=== PATIENT | male | born 1930 | race Caucasian/White ===

== ENCOUNTER 2020-11-17 15:44 | Inpatient (IN) ==
[2020-11-17 17:47] LABS: POC Blood Urea Nitrogen 17 mg/dL (6-20); POC CO2 22 mmol/L (22-30); POC Calcium, Ionized 1.13 mmEq/L (1.16-1.32); POC Chloride 102 mEq/L (96-108); POC Creatinine 0.7 mg/dL (0.6-1.2); POC Glucose, Random 132 mg/dL (70-105); POC Hematocrit 38 % (41-55); POC Potassium 3.8 mEql/L (3.3-5.1); POC Sodium 137 mEq/L (133-145)
--- NOTE | 2020-11-17 18:10 | Emergency Department Note ---
Weakness HPI General Chief complaint: Weakness Stated complaint: pain, weakness Time Seen by Provider: 11/17/20 17:14 Source: EMS Mode of arrival: EMS Limitations: other History of Present Illness HPI Narrative: This is an 89-year-old male patient who lives at [facility] who was sent in by his caregivers for acute ambulatory dysfunction and right hip pain. No previous falls. No known traumatic injuries. The patient is normally able to transfer himself from his bed to his chair and from his chair to the [facility], but was unable to stand and transfer this morning. Patient has dementia and is severely hard of hearing and is unable to give me a review of systems. His son is at the bedside to fill in some of the gaps of his history. Patient has a Dilaudid pain pump in place for lumbar back pain that is managed by Opal Rojas with last refill in September. Per chart review the patient has a history of severe aortic stenosis as well as COPD. Related Data Home Medications Medication Instructions Recorded Confirmed O2 2 l .ROUTE QDAY 05/04/19 11/18/20 carboxymethylcellulose sodium 2 drp OPHTHALMIC (EYE) QID 05/04/19 11/18/20 [Artificial Tears (cmc)] ketoconazole 2 % shampoo 1 applic TOPICAL 3XW 05/04/19 11/18/20 ketoconazole 2 % topical cream 1 applic TOPICAL 3XW g 05/04/19 11/18/20 sennosides 8.6 mg tablet 17.2 mg PO QPM tab 05/04/19 11/18/20 tiotropium bromide 18 mcg capsule 1 cap INHALATION QAM puff 05/04/19 11/18/20 with inhalation device vit C-vit [id number] 1 cap PO QDAY 05/04/19 11/18/20 [Ocuvite] 4 Wheel Walker with Seat NOTAPPLIC 05/17/19 10/02/20 acetaminophen 500 mg tablet 500 mg PO Q6H PRN tab 05/17/19 11/18/20 benzocaine 10 % mucosal gel 1 applic MUCOUS MEM .COMPLEX 05/17/19 11/18/20 cyanocobalamin (vitamin B-12) 1,000 mcg PO QDAY 05/17/19 11/18/20 1,000 mcg capsule ferrous sulfate 325 mg (65 mg 325 mg PO BID tab 05/17/19 11/18/20 iron) tablet memantine 5 mg tablet 10 mg PO BID tab 05/17/19 11/18/20 promethazine 12.5 mg tablet 12.5 mg PO Q8H PRN tab 05/17/19 11/18/20 tizanidine 4 mg tablet 4 mg PO TID 05/17/19 11/18/20 Previous Rx's Medication Instructions Recorded furosemide 20 mg tablet 20 mg PO .COMPLEX #90 tab 05/04/19 zinc oxide 13 % topical cream 1 applic TOPICAL QPM #113 g 05/15/19 erythromycin 5 mg/gram (0.5 %) eye 0.5 inch OPHTHALMIC BID #1 g 06/28/19 ointment cholecalciferol (vitamin D3) 25 25 mcg PO QDAY #90 tab 08/02/19 mcg (1,000 unit) chewable tablet pantoprazole 40 mg tablet,delayed 40 mg PO QAM #90 tab 08/02/19 release potassium chloride 10 mEq 10 meq PO BID #180 tab 08/02/19 tablet,extended release(part/cryst) nystatin 100,000 unit/gram topical See Rx Instructions .ROUTE 08/21/19 cream .COMPLEX #30 unknown measurement unit code: gram atorvastatin 20 mg tablet 20 mg PO QDAY #90 tab 09/11/19 citalopram 40 mg tablet 40 mg PO QAM #90 tab 09/11/19 divalproex 250 mg tablet,extended 250 mg PO QNOON #90 tab 09/11/19 release 24 hr divalproex 500 mg tablet,extended 500 mg PO QHS #90 tab 09/11/19 release 24 hr finasteride 5 mg tablet 5 mg PO QPM #90 tab 09/11/19 gabapentin 300 mg capsule 300 mg PO TID #270 cap 09/11/19 levothyroxine 25 mcg capsule 25 mcg PO QAM #90 cap 09/11/19 megestrol 400 mg/10 mL (40 mg/mL) 200 mg PO QAM #480 ml 09/11/19 oral suspension polyethylene glycol 3350 17 17 g PO QDAY #850 g 09/11/19 gram/dose oral powder tamsulosin 0.4 mg capsule 0.4 mg PO QHS #90 cap 09/11/19 lactulose 10 gram/15 mL oral See Rx Instructions .ROUTE 09/25/19 solution .COMPLEX #473 ml diclofenac sodium 1 % topical gel See Rx Instructions .ROUTE 09/23/20 .COMPLEX #100 g Allergies Allergy/AdvReac Type Severity Reaction Status Date / Time No Known Drug Allergies Allergy Verified 11/17/20 15:49 Review of Systems ROS ROS Narrative: Narrative: All systems ED: reviewed and negative except as stated. [facility] Narrative Patient History Narrative: Narrative: Medical/Surgical/Family History All Active Problems Intertrochanteric fracture of right hip (Acute) Abdominal pain (Acute) Shoulder pain, left (Acute) Facial swelling (Acute) Facet arthropathy, lumbar (Chronic) Radiculopathy of cervical region (Chronic) Stenosis, cervical spine (Chronic) Degenerative disc disease (Chronic) Radiculopathy of lumbar region (Chronic) Breakdown (mechanical) of other nervous system device, implant or graft, initial encounter (Chronic) Severe aortic regurgitation (Chronic) First degree atrioventricular block (Chronic) Basal cell carcinoma, face (Chronic) Fatigue (Chronic) Anxiety (Chronic) VIVIANE (obstructive sleep apnea) (Chronic) Other abnormalities of gait and mobility (Chronic) Tremor (Chronic) Chronic pain (Chronic) Dementia (Chronic) Diverticulosis of sigmoid colon (Chronic) GI bleed (Chronic) Headache (Chronic) Chronic hypokalemia (Chronic) Low back pain (Chronic) Arthritis (Chronic) Neuropathy (Chronic) Cardiac murmur (Chronic) B-complex deficiency (Chronic) Bilateral lower extremity edema (Chronic) Physical exam (Chronic) Epidermal cyst (Chronic) Lower extremity edema (Chronic) Dizziness (Chronic) Peripheral neuropathy (Chronic) Stomatitis and mucositis, unspecified (Chronic) Anemia, iron deficiency (Chronic) Vitamin B12 deficiency (Chronic) Vitamin D deficiency (Chronic) Systolic murmur (Chronic) Hypoxia (Chronic) SOB (shortness of breath) (Chronic) Abdominal pain, LLQ (left lower quadrant) (Chronic) Actinic keratosis (Chronic) Back pain (Chronic) 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) Chronic obstructive pulmonary disease (Chronic) Constipation (Chronic) Degenerative joint disease (Chronic) Depression (Chronic) Dyspnea (Chronic) Gastroesophageal reflux (Chronic) Gout (Chronic) Hypercholesterolemia (Chronic) Hyperlipidemia (Chronic) Hypertension, essential (Chronic) Incontinence of urine (Chronic) Urge incontinence (Chronic ~06/08/12) Insomnia, unspecified (Chronic) Leukopenia (Chronic) Lung nodule (Chronic) Macular degeneration (Chronic) Nocturia (Chronic 06/08/12) Obstructive sleep apnea (adult) (pediatric) (Chronic) Peptic ulcer disease (Chronic) Plantar wart (Chronic) BPH NOS w ur obs/LUTS (Chronic) Skin disorder (Chronic) Thrush, oral (Chronic) Urinary retention (Chronic 06/14/12) Urinary urgency (Chronic) Visual loss (Chronic) Medical History Abdominal pain, LLQ (left lower quadrant) Actinic keratosis Anemia, iron deficiency Anxiety Arthritis B-complex deficiency Back pain With radiation,unspecified Basal cell carcinoma, face Bilateral lower extremity edema BPH NOS w ur obs/LUTS BPH w urinary obs/LUTS (06/08/12) Breakdown (mechanical) of other nervous system device, implant or graft, initial encounter Cardiac murmur Chronic hypokalemia Chronic obstructive pulmonary disease Chronic pain with intrathecal pump in place Constipation Degenerative disc disease Degenerative joint disease Dementia Depression Diverticulosis of sigmoid colon Dizziness Dyspnea Epidermal cyst Facet arthropathy, lumbar Fatigue First degree atrioventricular block Gastroesophageal reflux GI bleed Gout Headache Hypercholesterolemia Hyperlipidemia Hypertension, essential Hypoxia Incontinence of urine Insomnia, unspecified Leukopenia Low back pain Lung nodule Macular degeneration Neuropathy Nocturia (06/08/12) Obstructive sleep apnea (adult) (pediatric) VIVIANE (obstructive sleep apnea) Other abnormalities of gait and mobility Unsteady when walking Peptic ulcer disease Peripheral neuropathy Physical exam Plantar wart right and left Radiculopathy of cervical region Radiculopathy of lumbar region Severe aortic regurgitation Skin disorder SOB (shortness of breath) Stenosis, cervical spine Stomatitis and mucositis, unspecified Systolic murmur Thrush, oral Tremor Urge incontinence (~06/08/12) Urinary retention (06/14/12) Urinary urgency Visual loss Vitamin B12 deficiency Vitamin D deficiency Surgical History History of colonoscopy History of esophagogastroduodenoscopy (EGD) 1998, 2007 History of left inguinal hernia repair (~2013) History of shoulder surgery right S/P epidural steroid injection 11/21 TF VIMAL #2 Left L4-5, L5-S1 w/o sed 11/09/201610/21 TF VIMAL #1 Lt L4-5 w/o sed 10/28/2016 S/P insertion of intrathecal pump [employer] Replacement [facility]- 12/08/2017 Replacement pump [facility]- 07/02/2011 Implant of Pump 2004 Family History Brother Esophageal cancer Father Liver cancer Daughter Insomnia Social History Smoking Status: Never smoker Alcohol Intake Frequency: holiday/special occasion only Substance Use: does not use Exam Narrative Narrative: General: NAD. Hard of hearing. Nontoxic appearing. Alert and oriented to self. Following commands. Pleasant and conversant. HEENT: PERRLA, EOMI, normocephalic. Dry mucous membranes. Normal facies. Chest: Symmetric, no pain to palpation Respiratory: Lungs clear to auscultation bilaterally. No respiratory distress. Unlabored breathing. Heart: Regular rate and rhythm, no murmurs/clicks/rubs. Abdomen: Non-tender, Non distended, normal bowel tones. No organomegaly. Extremities: Warm and well perfused. No edema. DP 2+ bilaterally. No venous stasis. No right lower extremity deformity or derangement. Patient has normal plantar and dorsiflexion. Increased pain with knee flexion. There is pain to palpation along the greater trochanter. No ecchymosis. Small abrasion to the anterior right parker. Neuro: No focal deficits. Cranial nerves II-XII normal. Skin: Warm dry, no rashes or lesions, no cyanosis. Psych: Normal mood and affect Heme/Lymph: No abnormal bruising General Limitations: other Course Vital Signs Vital signs: Vital Signs Temperature 98.9 F 11/17/20 15:44 Pulse Rate 94 H 11/17/20 15:44 Respiratory Rate 16 11/17/20 15:44 Blood Pressure 120/81 11/17/20 15:44 Pulse Oximetry (%) 100 11/17/20 15:44 Temperature 97.2 F 11/18/20 18:39 Pulse Rate 81 11/18/20 18:40 Respiratory Rate 12 11/18/20 18:40 Blood Pressure 125/82 11/18/20 18:40 Pulse Oximetry (%) 93 11/18/20 18:40 [facility] Narrative Medical decision making narrative: Right intertrochanteric hip fracture Patient will need admission for pain management and ongoing discussion of possible fixation of the right hip fracture. I spoke with Dr. Vieira who agrees for admission but would like the hospitalist to manage the patient's multiple chronic medical issues. I spoken with the son, Zurdo, who is the DPOA and he would like to discuss hospice and comfort care versus surgical fixation with his family prior to making a decision for surgery. Patient is initiated on IV analgesics and I have signed him out to the hospitalist for admission. Lab Data Result diagrams: 11/18/20 06:50 11/18/20 06:50 Labs: Lab Results 11/17/20 11/17/20 11/17/20 Range/Units 16:30 17:35 17:35 WBC 11.2 H (4.5-11.0) K/mcL RBC 4.04 L (4.63-6.08) M/mcL Hgb 13.2 L (13.7-17.5) g/dL Hct 38.1 L (40.1-51.0) % POC Hct 38 L (41-55) % MCV 94.3 (80.0-100.0) fL MCH 32.7 (26.0-34.0) pg MCHC 34.6 (31.0-36.0) g/dL RDW 12.9 (11.5-14.5) % Plt Count 117 L (140-440) K/mcL MPV 11.1 H (7.4-10.4) fL Neut % (Auto) 82.1 H (38.0-78.0) % Lymph % (Auto) 9.6 L (15.5-49.0) % Banner % (Auto) 7.9 (1.0-12.0) % Eos % (Auto) 0 (0.0-7.0) % Baso % (Auto) 0.4 (0.0-2.0) % Lymph # (Auto) 1.08 L (1.50-4.80) K/mcL Banner # (Auto) 0.89 (0.10-0.90) K/mcL Eos # (Auto) 0 (0.00-0.70) K/mcL Baso # (Auto) 0.04 (0.00-0.30) K/mcL Absolute Neutrophils 9.20 H (1.80-8.00) K/mcL POC Sodium 137 (133-145) mEq/L Sodium (133-145) mmol/L POC Potassium 3.8 (3.3-5.1) mEql/L Potassium (3.3-5.1) mmol/L POC Chloride 102 (96-108) mEq/L Chloride (96-108) mmol/L Carbon Dioxide (22-30) mmol/L POC Total CO2 22 (22-30) mmol/L Anion Gap (8.0-16.0) POC BUN 17 (6-20) mg/dL BUN (8-23) mg/dL Creatinine (0.7-1.2) mg/dL POC Creatinine 0.7 (0.6-1.2) mg/dL GFR Calculation Glucose (70-105) mg/dL POC Glucose 132 H (70-105) mg/dL Calcium (8.6-10.4) mg/dL POC WB Ioniz Calcium 1.13 L (1.16-1.32) mmEq/L Total Bilirubin (0.1-1.0) mg/dL AST (<40) U/L ALT (<40) U/L Alkaline Phosphatase (39-117) U/L Total Protein (5.9-8.4) gm/dL Albumin (3.2-5.2) gm/dL Globulin (2.2-3.7) gm/dL Albumin/Globulin Ratio (1.0-2.3) Urine Color Yellow Urine Appearance Hazy A (Clear) Urine pH 5.0 (5.0-9.0) Ur Specific [place] 1.031 (1.000-1.035) Urine Protein 30 A (Negative) mg/dL Urine Glucose (UA) Negative (Negative) mg/dL Urine Ketones 5 A (Negative) mg/dL Urine Occult Blood Negative (Negative) mg/dL Urine Nitrate Negative (Negative) Urine Bilirubin Negative (Negative) mg/dL Urine Urobilinogen 4.0 A mg/dL Ur Leukocyte Esterase Negative (Negative) /ug Urine RBC 9 H (0-3) /hpf Urine WBC 2 (0-4) /hpf Ur Squamous Epith Cells 1 (0-4) /hpf Urine Bacteria None (0) /hpf Hyaline Casts 7 H (0-2) /lph Urine Mucus Many A (None) /hpf Ur Culture Indicated? No 09/13/21 Range/Units 19:30 WBC (4.5-11.0) K/mcL RBC (4.63-6.08) M/mcL Hgb (13.7-17.5) g/dL Hct (40.1-51.0) % POC Hct (41-55) % MCV (80.0-100.0) fL MCH (26.0-34.0) pg MCHC (31.0-36.0) g/dL RDW (11.5-14.5) % Plt Count (140-440) K/mcL MPV (7.4-10.4) fL Neut % (Auto) (38.0-78.0) % Lymph % (Auto) (15.5-49.0) % Banner % (Auto) (1.0-12.0) % Eos % (Auto) (0.0-7.0) % Baso % (Auto) (0.0-2.0) % Lymph # (Auto) (1.50-4.80) K/mcL Banner # (Auto) (0.10-0.90) K/mcL Eos # (Auto) (0.00-0.70) K/mcL Baso # (Auto) (0.00-0.30) K/mcL Absolute Neutrophils (1.80-8.00) K/mcL POC Sodium (133-145) mEq/L Sodium 134 (133-145) mmol/L POC Potassium (3.3-5.1) mEql/L Potassium 3.7 (3.3-5.1) mmol/L POC Chloride (96-108) mEq/L Chloride 100 (96-108) mmol/L Carbon Dioxide 22 (22-30) mmol/L POC Total CO2 (22-30) mmol/L Anion Gap 12.0 (8.0-16.0) POC BUN (6-20) mg/dL BUN 16 (8-23) mg/dL Creatinine 0.6 L (0.7-1.2) mg/dL POC Creatinine (0.6-1.2) mg/dL GFR Calculation 89 Glucose 118 H (70-105) mg/dL POC Glucose (70-105) mg/dL Calcium 8.7 (8.6-10.4) mg/dL POC WB Ioniz Calcium (1.16-1.32) mmEq/L Total Bilirubin 0.8 (0.1-1.0) mg/dL AST 24 (<40) U/L ALT 16 (<40) U/L Alkaline Phosphatase 67 (39-117) U/L Total Protein 6.0 (5.9-8.4) gm/dL Albumin 3.3 (3.2-5.2) gm/dL Globulin 2.7 (2.2-3.7) gm/dL Albumin/Globulin Ratio 1.2 (1.0-2.3) Urine Color Urine Appearance (Clear) Urine pH (5.0-9.0) Ur Specific [place] (1.000-1.035) Urine Protein (Negative) mg/dL Urine Glucose (UA) (Negative) mg/dL Urine Ketones (Negative) mg/dL Urine Occult Blood (Negative) mg/dL Urine Nitrate (Negative) Urine Bilirubin (Negative) mg/dL Urine Urobilinogen mg/dL Ur Leukocyte Esterase (Negative) /ug Urine RBC (0-3) /hpf Urine WBC (0-4) /hpf Ur Squamous Epith Cells (0-4) /hpf Urine Bacteria (0) /hpf Hyaline Casts (0-2) /lph Urine Mucus (None) /hpf Ur Culture Indicated? ED POC Tests ED POC Tests: JIMENA - SARS Antigen Negative Discharge Plan Patient/Caregiver Discharge Instructions Pt seen by [facility] OPERATOR/PA only: Yes Clinical Impression: Intertrochanteric fracture of right hip Patient Disposition: Xfer As Inpt ([facility]) Discharge Date/Time: 11/17/20 20:55 Discharge Location: [facility]
[2020-11-17 18:42] LABS: Basophils # (Auto) 0.04 K/mcL (0.00-0.30); Basophils % (Auto) 0.4 % (0.0-2.0); Eosinophils # (Auto) 0 K/mcL (0.00-0.70); Eosinophils % (Auto) 0 % (0.0-7.0); Hematocrit 38.1 % (40.1-51.0); Hemoglobin 13.2 g/dL (13.7-17.5); Lymphocytes # (Auto) 1.08 K/mcL (1.50-4.80); Lymphocytes % (Auto) 9.6 % (15.5-49.0); Mean Cell Volume 94.3 fL (80.0-100.0); Mean Corpuscular HGB Conc 34.6 g/dL (31.0-36.0); Mean Platelet Volume 11.1 fL (7.4-10.4); Monocytes # (Auto) 0.89 K/mcL (0.10-0.90); Monocytes % (Auto) 7.9 % (1.0-12.0); Neutrophils % (Auto) 82.1 % (38.0-78.0); Platelet Count 117 K/mcL (140-440); RBC 4.04 M/mcL (4.63-6.08); Red Cell Distribution Width 12.9 % (11.5-14.5); WBC 11.2 K/mcL (4.5-11.0)
--- NOTE | 2020-11-17 18:50 | XRay Report ---
HISTORY: Fell and fractured right hip FINDINGS: There is an acute fracture of the proximal right femur. It involves the greater trochanter and extends down to the junction of the femoral neck and the lesser trochanter. There is moderate varus angulation. The femoral head remains normally aligned with the acetabulum. There is underlying osteoporosis. Left hip is normal. Patient has a spinal stimulator powerpack which overlies the right iliac crest. IMPRESSION: Fractured right hip Interpreted and Authenticated by: Trino Levy 11/17/20
[2020-11-17 18:55] LABS: Appearance,Urine HAZY (Clear); Bilirubin,Urine Negative (Negative); Color,Urine Yellow; Culture Indicated,Urine No; Glucose,Urine (UA) Negative (Negative); Ketones,Urine 5 mg/dL (Negative); Leukocyte Esterase,Urine Negative /ug (Negative); Mucus,Urine MANY /hpf; Nitrate,Urine Negative (Negative); Protein,Urine 30 mg/dL (Negative); Specific Gravity,Urine 1.031 (1.000-1.035); Urine Blood Negative (Negative); Urine Hyaline Cast 7 /lph (0-2); Urine RBC 9 /hpf (0-3); Urine Squamous Epithelial Cell 1 /hpf (0-4); Urine WBC 2 /hpf (0-4)
--- NOTE | 2020-11-17 18:55 | XRay Report ---
HISTORY: Altered level of consciousness with pain and weakness FINDINGS: Heart is mild to moderately enlarged. There is a vague infiltrate centrally in the left lung with greatest involvement above the left diaphragm. Mildly prominent increased interstitial lung markings are present around the right lower hilum. Some of this is scar tissue. There are nodular densities laterally in the right lower thorax. These correspond with calcified pleural plaques seen on the prior abdomen CT done on 04/09/20. There were bands of scar or atelectasis in the left lung base on the prior abdomen CT. The infiltrates are new. Pulmonary vessels are upper limits of normal in caliber. There could be a small left-sided pleural effusion. No right-sided effusion is seen. Postsurgical changes are again noted in the right shoulder. IMPRESSION: Mild left lower lobe pneumonia superimposed upon underlying parenchymal scarring. Cardiomegaly and borderline pulmonary vascular congestion Interpreted and Authenticated by: Trino Levy 11/17/20
[2020-11-17] MEDS ORDERED: HYDROmorphone 0.5 MG/0.5 ML SYRINGE IV ONE (19:06)
[2020-11-17] MEDS ORDERED: ACETAMINOPHEN 1,000 MG/100 ML BAG IV ONE (19:06)
--- NOTE | 2020-11-17 20:27 | Internal Med History&Physical ---
HPI History of Present Illness Patient information: Note initiated : 11/17/20 at 8:26 pm Service Date, if different from initiated Date: [] Patient: Douglas Granados 89 y/o M admitted on for pain, weakness. Chief Complaint: [] History of present illness: Mr. Granados is a 89 year old male with a history of multiple comorbidities including dementia who resides at [facility] and was brought to medical attention for difficulty ambulating due to severe pain. In the ED the patient was found to have an acute right hip fracture. Workup also included a chest xray that was suggestive of a left lower lobe pneumonia. The patient's son makes medical decisions, he has not decided whether to pursue surgical fixation or comfort cares. Hospital medicine was asked to admit the patient for pain control and goals of care discussions. Review of systems: unable to obtain due to advanced dementia Physical Exam Head: Atraumatic, normal inspection. Eyes: normal appearance, no scleral icterus. Neck: full ROM Respiratory: no respiratory distress. Cardiovascular: normal rate and rhythm, S1, S2. GI/Abdominal: soft, nontender, no guarding, palpable pain pump. Extremities: right lower extremity weakness, nontender. Neurological: CN II-XII intact, intact motor, intact sensation. Psychiatric: normal mood, impaired cognition Skin: warm, normal color PFSH PFSH All Active Problems (Updated 11/17/20 @ 23:04 by Shaneka Sheth PA-C) Intertrochanteric fracture of right hip (Acute) Abdominal pain (Acute) Shoulder pain, left (Acute) Facial swelling (Acute) Facet arthropathy, lumbar (Chronic) Radiculopathy of cervical region (Chronic) Stenosis, cervical spine (Chronic) Degenerative disc disease (Chronic) Radiculopathy of lumbar region (Chronic) Breakdown (mechanical) of other nervous system device, implant or graft, initial encounter (Chronic) Severe aortic regurgitation (Chronic) First degree atrioventricular block (Chronic) Basal cell carcinoma, face (Chronic) Fatigue (Chronic) Anxiety (Chronic) VIVIANE (obstructive sleep apnea) (Chronic) Other abnormalities of gait and mobility (Chronic) Tremor (Chronic) Chronic pain (Chronic) Dementia (Chronic) Diverticulosis of sigmoid colon (Chronic) GI bleed (Chronic) Headache (Chronic) Chronic hypokalemia (Chronic) Low back pain (Chronic) Arthritis (Chronic) Neuropathy (Chronic) Cardiac murmur (Chronic) B-complex deficiency (Chronic) Bilateral lower extremity edema (Chronic) Physical exam (Chronic) Epidermal cyst (Chronic) Lower extremity edema (Chronic) Dizziness (Chronic) Peripheral neuropathy (Chronic) Stomatitis and mucositis, unspecified (Chronic) Anemia, iron deficiency (Chronic) Vitamin B12 deficiency (Chronic) Vitamin D deficiency (Chronic) Systolic murmur (Chronic) Hypoxia (Chronic) SOB (shortness of breath) (Chronic) Abdominal pain, LLQ (left lower quadrant) (Chronic) Actinic keratosis (Chronic) Back pain (Chronic) 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) Chronic obstructive pulmonary disease (Chronic) Constipation (Chronic) Degenerative joint disease (Chronic) Depression (Chronic) Dyspnea (Chronic) Gastroesophageal reflux (Chronic) Gout (Chronic) Hypercholesterolemia (Chronic) Hyperlipidemia (Chronic) Hypertension, essential (Chronic) Incontinence of urine (Chronic) Urge incontinence (Chronic ~06/08/12) Insomnia, unspecified (Chronic) Leukopenia (Chronic) Lung nodule (Chronic) Macular degeneration (Chronic) Nocturia (Chronic 06/08/12) Obstructive sleep apnea (adult) (pediatric) (Chronic) Peptic ulcer disease (Chronic) Plantar wart (Chronic) BPH NOS w ur obs/LUTS (Chronic) Skin disorder (Chronic) Thrush, oral (Chronic) Urinary retention (Chronic 06/14/12) Urinary urgency (Chronic) Visual loss (Chronic) Medical History Abdominal pain, LLQ (left lower quadrant) Actinic keratosis Anemia, iron deficiency Anxiety Arthritis B-complex deficiency Back pain With radiation,unspecified Basal cell carcinoma, face Bilateral lower extremity edema BPH NOS w ur obs/LUTS BPH w urinary obs/LUTS (06/08/12) Breakdown (mechanical) of other nervous system device, implant or graft, initial encounter Cardiac murmur Chronic hypokalemia Chronic obstructive pulmonary disease Chronic pain with intrathecal pump in place Constipation Degenerative disc disease Degenerative joint disease Dementia Depression Diverticulosis of sigmoid colon Dizziness Dyspnea Epidermal cyst Facet arthropathy, lumbar Fatigue First degree atrioventricular block Gastroesophageal reflux GI bleed Gout Headache Hypercholesterolemia Hyperlipidemia Hypertension, essential Hypoxia Incontinence of urine Insomnia, unspecified Leukopenia Low back pain Lung nodule Macular degeneration Neuropathy Nocturia (06/08/12) Obstructive sleep apnea (adult) (pediatric) VIVIANE (obstructive sleep apnea) Other abnormalities of gait and mobility Unsteady when walking Peptic ulcer disease Peripheral neuropathy Physical exam Plantar wart right and left Radiculopathy of cervical region Radiculopathy of lumbar region Severe aortic regurgitation Skin disorder SOB (shortness of breath) Stenosis, cervical spine Stomatitis and mucositis, unspecified Systolic murmur Thrush, oral Tremor Urge incontinence (~06/08/12) Urinary retention (06/14/12) Urinary urgency Visual loss Vitamin B12 deficiency Vitamin D deficiency Surgical History History of colonoscopy History of esophagogastroduodenoscopy (EGD) 1998, 2007 History of left inguinal hernia repair (~2013) History of shoulder surgery right S/P epidural steroid injection 11/21 TF VIMAL #2 Left L4-5, L5-S1 w/o sed 11/09/201610/21 TF VIMAL #1 Lt L4-5 w/o sed 10/28/2016 S/P insertion of intrathecal pump [employer] Replacement [facility]- 12/08/2017 Replacement pump [facility]- 07/02/2011 Implant of Pump 2004 Family History Brother Esophageal cancer Father Liver cancer Daughter Insomnia Social History marital status: physical activity: none alcohol intake frequency: holiday/special occasion only substance use type: does not use MEDS/ALLERGIES Home Medications and Allergies Home Medications Medication Instructions Recorded Confirmed Type O2 2 l .ROUTE QDAY 05/04/19 10/02/20 History carboxymethylcellulose sodium 2 drp OPHTHALMIC (EYE) QID 05/04/19 10/02/20 History [Artificial Tears (cmc)] furosemide 20 mg tablet 20 mg PO .COMPLEX #90 tab 05/04/19 10/02/20 Rx ketoconazole 2 % shampoo 1 applic TOPICAL 3XW 05/04/19 10/02/20 History ketoconazole 2 % topical cream 1 applic TOPICAL 3XW g 05/04/19 10/02/20 History sennosides 8.6 mg tablet 17.2 mg PO QPM tab 05/04/19 10/02/20 History tiotropium bromide 18 mcg capsule 1 cap INHALATION QAM puff 05/04/19 10/02/20 History with inhalation device vit C-vit [id number]-3 1 cap PO QDAY 05/04/19 10/02/20 History [Ocuvite] zinc oxide 13 % topical cream 1 applic TOPICAL QPM #113 g 05/15/19 10/02/20 Rx 4 Wheel Walker with Seat NOTAPPLIC 05/17/19 10/02/20 History acetaminophen 500 mg tablet 500 mg PO Q6H PRN tab 05/17/19 10/02/20 History benzocaine 10 % mucosal gel 1 applic MUCOUS MEM .COMPLEX 05/17/19 10/02/20 History cyanocobalamin (vitamin B-12) 1,000 mcg PO QDAY 05/17/19 10/02/20 History 1,000 mcg capsule ferrous sulfate 325 mg (65 mg 325 mg PO BID tab 05/17/19 10/02/20 History iron) tablet memantine 5 mg tablet 10 mg PO BID tab 05/17/19 10/02/20 History promethazine 12.5 mg tablet 12.5 mg PO Q8H PRN tab 05/17/19 10/02/20 History tizanidine 4 mg tablet 4 mg PO TID 05/17/19 10/02/20 History erythromycin 5 mg/gram (0.5 %) eye 0.5 inch OPHTHALMIC BID #1 g 06/28/1910/02 Rx ointment cholecalciferol (vitamin D3) 25 25 mcg PO QDAY #90 tab 08/02/19 10/02/20 Rx mcg (1,000 unit) chewable tablet pantoprazole 40 mg tablet,delayed 40 mg PO QAM #90 tab 08/02/19 10/02/20 Rx release potassium chloride 10 mEq 10 meq PO BID #180 tab 08/02/19 10/02/20 Rx tablet,extended release(part/cryst) nystatin 100,000 unit/gram topical See Rx Instructions .ROUTE 08/21/19 10/02/20 Rx cream .COMPLEX #30 unknown measurement unit code: gram atorvastatin 20 mg tablet 20 mg PO QDAY #90 tab 09/11/19 10/02/20 Rx citalopram 40 mg tablet 40 mg PO QAM #90 tab 09/11/19 10/02/20 Rx divalproex 250 mg tablet,extended 250 mg PO QNOON #90 tab 09/11/19 10/02/20 Rx release 24 hr divalproex 500 mg tablet,extended 500 mg PO QHS #90 tab 09/11/19 10/02/20 Rx release 24 hr finasteride 5 mg tablet 5 mg PO QPM #90 tab 09/11/19 10/02/20 Rx gabapentin 300 mg capsule 300 mg PO TID #270 cap 09/11/19 10/02/20 Rx levothyroxine 25 mcg capsule 25 mcg PO QAM #90 cap 09/11/19 10/02/20 Rx megestrol 400 mg/10 mL (40 mg/mL) 200 mg PO QAM #480 ml 09/11/19 10/02/20 Rx oral suspension polyethylene glycol 3350 17 17 g PO QDAY #850 g 09/11/19 10/02/20 Rx gram/dose oral powder tamsulosin 0.4 mg capsule 0.4 mg PO QHS #90 cap 09/11/19 10/02/20 Rx lactulose 10 gram/15 mL oral See Rx Instructions .ROUTE 09/25/19 10/02/20 Rx solution .COMPLEX #473 ml diclofenac sodium 1 % topical gel See Rx Instructions .ROUTE 09/23/20 10/02/20 Rx .COMPLEX #100 g Allergies Allergy/AdvReac Type Severity Reaction Status Date / Time No Known Drug Allergies Allergy Verified 11/17/20 15:49 EXAM Constitutional Vitals: Temp Pulse Resp BP Pulse Ox 98.9 F 79 19 108/76 91 11/17/20 15:44 11/17/20 20:13 11/17/20 20:13 11/17/20 20:13 11/17/20 20:13 DATA Data Completed and Pending Labs: Labs from last 24 hours 11/17/20 11/17/20 11/17/20 19:30 17:35 17:35 WBC 11.2 H RBC 4.04 L Hgb 13.2 L Hct 38.1 L POC Hct 38 L MCV 94.3 MCH 32.7 MCHC 34.6 RDW 12.9 Plt Count 117 L MPV 11.1 H Neut % (Auto) 82.1 H Lymph % (Auto) 9.6 L Gilchrist % (Auto) 7.9 Eos % (Auto) 0 Baso % (Auto) 0.4 Lymph # (Auto) 1.08 L Gilchrist # (Auto) 0.89 Eos # (Auto) 0 Baso # (Auto) 0.04 Absolute Neutrophils 9.20 H POC Sodium 137 Sodium Pending POC Potassium 3.8 Potassium Pending POC Chloride 102 Chloride Pending Carbon Dioxide Pending POC Total CO2 22 Anion Gap Pending POC BUN 17 BUN Pending Creatinine Pending POC Creatinine 0.7 GFR Calculation Pending Glucose Pending POC Glucose 132 H Calcium Pending POC WB Ioniz Calcium 1.13 L Total Bilirubin Pending AST Pending ALT Pending Alkaline Phosphatase Pending Total Protein Pending Albumin Pending Globulin Pending Albumin/Globulin Ratio Pending Urine Color Urine Appearance Urine pH Ur Specific [place] Urine Protein Urine Glucose (UA) Urine Ketones Urine Occult Blood Urine Nitrate Urine Bilirubin Urine Urobilinogen Ur Leukocyte Esterase Urine RBC Urine WBC Ur Squamous Epith Cells Urine Bacteria Hyaline Casts Urine Mucus Ur Culture Indicated? 11/17/20 16:30 WBC RBC Hgb Hct POC Hct MCV MCH MCHC RDW Plt Count MPV Neut % (Auto) Lymph % (Auto) Gilchrist % (Auto) Eos % (Auto) Baso % (Auto) Lymph # (Auto) Gilchrist # (Auto) Eos # (Auto) Baso # (Auto) Absolute Neutrophils POC Sodium Sodium POC Potassium Potassium POC Chloride Chloride Carbon Dioxide POC Total CO2 Anion Gap POC BUN BUN Creatinine POC Creatinine GFR Calculation Glucose POC Glucose Calcium POC WB Ioniz Calcium Total Bilirubin AST ALT Alkaline Phosphatase Total Protein Albumin Globulin Albumin/Globulin Ratio Urine Color Yellow Urine Appearance Hazy A Urine pH 5.0 Ur Specific [place] 1.031 Urine Protein 30 A Urine Glucose (UA) Negative Urine Ketones 5 A Urine Occult Blood Negative Urine Nitrate Negative Urine Bilirubin Negative Urine Urobilinogen 4.0 A Ur Leukocyte Esterase Negative Urine RBC 9 H Urine WBC 2 Ur Squamous Epith Cells 1 Urine Bacteria None Hyaline Casts 7 H Urine Mucus Many A Ur Culture Indicated? No A/P Narrative A/P Narrative: Assessment: 89 year old male with a history of multiple comorbidities including dementia who resides at [facility] and was brought to medical attention for difficulty ambulating due to severe pain and was found to have an acute right hip fracture and findings concerning for an incidental left lower pneumonia on chest xray. #Acute right hip fracture concerning for pathologic fracture #Probable left lower lobe pneumonia vs mass #Aortic stenosis/regurgitation #COPD #Hypothyroidism #Hyperlipidemia #Chronic pain #Dementia Plan -Analgesic prn -Ortho consult -Home medication reconciliation -Review goals of care-surgery vs comfort care -Delirium mitigation strategies -Consider CT chest if family wants to pursue further workup. Time Spent With Patient Time: Total time spent is greater than 50% in coordination of care (as documented) at patient's floor/unit and/or counseling patient:
[2020-11-17 20:32] LABS: ALT/SGPT 16 U/L (<40); AST/SGOT 24 U/L (<40); Albumin 3.3 gm/dL (3.2-5.2); Albumin/Globulin Ratio 1.2 (1.0-2.3); Alkaline Phosphatase 67 U/L (39-117); Bilirubin,Total 0.8 mg/dL (0.1-1.0); Blood Urea Nitrogen 16 mg/dL (8-23); Calcium 8.7 mg/dL (8.6-10.4); Carbon Dioxide 22 mmol/L (22-30); Chloride 100 mmol/L (96-108); Globulin 2.7 gm/dL (2.2-3.7); Glomerular Filtration Rate 89; Glucose 118 mg/dL (70-105)
[2020-11-17] MEDS ORDERED: ACETAMINOPHEN 325 MG TABLET PO PRN (21:01)
[2020-11-17] MEDS ORDERED: ONDANSETRON 4 MG/2 ML VIAL IV PRN (21:01)
[2020-11-17] MEDS ORDERED: cefTRIAXone 1 GM in DEXTROSE 5% IN WATER 50 ML IV SCH (21:01)
[2020-11-17] MEDS: 0.9 % SODIUM CHLORIDE 10 ML SYRINGE IV SCH (22:28)
[2020-11-17] MEDS: cefTRIAXone 1 GM VIAL IV SCH (22:28)
[2020-11-17] MEDS: SENNOSIDES 1 TABLET PO SCH (22:39)
[2020-11-17] MEDS: AZITHROMYCIN 500 MG in DEXTROSE 5% IN WATER 250 ML IV SCH (22:39)
[2020-11-17] MEDS: DOCUSATE SODIUM 100 MG CAPSULE PO SCH (22:39)
[2020-11-18] MEDS: 0.9 % SODIUM CHLORIDE 10 ML SYRINGE IV SCH ×3 (05:45→22:40)
[2020-11-18 08:14] LABS: Hematocrit 38.9 % (40.1-51.0); Hemoglobin 13.3 g/dL (13.7-17.5); Mean Cell Volume 95.3 fL (80.0-100.0); Mean Corpuscular HGB Conc 34.2 g/dL (31.0-36.0); Mean Platelet Volume 11.5 fL (7.4-10.4); Platelet Count 120 K/mcL (140-440); RBC 4.08 M/mcL (4.63-6.08); WBC 10.2 K/mcL (4.5-11.0)
[2020-11-18 08:33] LABS: ALT/SGPT 14 U/L (<40); AST/SGOT 23 U/L (<40); Albumin 3.3 gm/dL (3.2-5.2); Albumin/Globulin Ratio 1.1 (1.0-2.3); Alkaline Phosphatase 67 U/L (39-117); Bilirubin,Total 0.8 mg/dL (0.1-1.0); Blood Urea Nitrogen 18 mg/dL (8-23); Calcium 8.5 mg/dL (8.6-10.4); Carbon Dioxide 21 mmol/L (22-30); Chloride 100 mmol/L (96-108); Globulin 2.9 gm/dL (2.2-3.7); Glomerular Filtration Rate 89; Glucose 112 mg/dL (70-105)
--- NOTE | 2020-11-18 09:01 | EKG ---
[facility] Test Date: 2020-11-17 Pat Name: Douglas Granados Department: ED Room: Gender: Male Financial Aid Coordinator: : 1930 Requested By: Shaneka Sheth Order Number: [id number] Reading MD: Anthony Rosenthal Measurements Intervals [place] Rate: 83 P: DC: QRS: -54 QRSD: 106 T: 77 QT: 408 QTc: 480 Interpretive Statements Atrial fibrillation LAFB Electronically Signed On 11-18-2020 9:01:18 PDT by Anthony Rosenthal /store/[email or web address]/[id number]
[2020-11-18] MEDS: cefTRIAXone 1 GM VIAL IV SCH (09:58)
[2020-11-18] MEDS: HYDROmorphone 0.5 MG/0.5 ML SYRINGE IV PRN ×2 (09:58→12:22)
[2020-11-18] MEDS: DOCUSATE SODIUM 100 MG CAPSULE PO SCH ×2 (09:59→20:53)
[2020-11-18 12:19] LABS: Lymphocytes % 9 % (15-49); Monocytes % (Manual) 8 % (1-12); Platelet Estimate DECREASED (Normal); RBC Morphology NORMAL (Normal); Segmented Neutrophils % 83 % (38-78)
[2020-11-18] MEDS: AZITHROMYCIN 500 MG in DEXTROSE 5% IN WATER 250 ML IV SCH (14:09)
[2020-11-18] MEDS ORDERED: DEXAMETHASONE 10 MG/ML VIAL ONE (16:53)
[2020-11-18] MEDS ORDERED: ePHEDrine 50 MG/5 ML SYRINGE (ANEST) IV ONE (16:53)
[2020-11-18] MEDS ORDERED: LIDOCAINE HCL/PF 100 MG/5 ML SYRINGE IV ONE (16:53)
[2020-11-18] MEDS ORDERED: PHENYLephrine 1 MG/10 ML SYRINGE (ANEST) ONE (16:53)
[2020-11-18] MEDS ORDERED: KETAMINE 50 MG/ML Syringe (ANEST) IV ONE (16:53)
[2020-11-18] MEDS ORDERED: ONDANSETRON 4 MG/2 ML VIAL ONE (16:53)
[2020-11-18] MEDS ORDERED: MAGNESIUM SULFATE 2 GM/50 ML BAG IV ONE (16:53)
[2020-11-18] MEDS ORDERED: TRANEXAMIC ACID 1,000 MG/10 ML VIAL ONE (16:53)
[2020-11-18] MEDS ORDERED: PROPOFOL 200 MG/20 ML VIAL IV ONE (16:53)
[2020-11-18] MEDS ORDERED: ACETAMINOPHEN 1,000 MG/100 ML BAG IV ONE (17:35)
[2020-11-18] MEDS ORDERED: LACTATED RINGERS 250 ML IV PRN (17:35)
[2020-11-18] MEDS ORDERED: ONDANSETRON 4 MG/2 ML VIAL IV PRN (17:35)
[2020-11-18] MEDS ORDERED: fentaNYL 100 MCG/2 ML VIAL IV PRN (17:35)
[2020-11-18] MEDS ORDERED: IPRATROPIUM/ALBUTEROL 3 ML AMPUL.NEB NEB PRN (17:35)
[2020-11-18] MEDS ORDERED: MEPERIDINE 25 MG/ML VIAL IV PRN (17:35)
[2020-11-18] MEDS ORDERED: NALOXONE HCL 0.4 MG/ML VIAL IV PRN (17:35)
[2020-11-18] MEDS ORDERED: PROMETHAZINE 25 MG/ML VIAL IV PRN (17:35)
[2020-11-18] MEDS ORDERED: BENZOCAINE/MENTHOL 1 LOZENGE PO PRN (17:35)
[2020-11-18] MEDS ORDERED: diphenhydrAMINE 50 MG/ML VIAL IV PRN (17:35)
--- NOTE | 2020-11-18 17:38 | Brief Operative Note ---
Brief Operative Note Date of procedure: 11/18/20 Pre-op diagnosis: Right hip base of neck fracture, possibly subacute Post-op diagnosis: same (Right hip base of neck fracture, reducible) Procedure: Open treatment internal fixation of right base of neck hip fracture w ith intramedullary fixation Grafts/Implants: Yes ([place] short gamma nail) Anesthesia: GLMA Findings: reducible base of neck fracture Complications: none Surgeon: Esvin Vieira Banking Supervisor: Tristan Lacy Estimated blood loss (cc): 50 Specimens Removed/Pathology: none sent Condition: stable Disposition: PACU
[2020-11-18] MEDS ORDERED: HYDROcodone/APAP 5/325MG TABLET PO PRN (17:43)
[2020-11-18] MEDS ORDERED: LACTATED RINGERS 1,000 ML IV SCH (17:45)
[2020-11-18] MEDS ORDERED: ceFAZolin 2 GM in DEXTROSE 5% IN WATER 50 ML IV SCH (17:45)
--- NOTE | 2020-11-18 17:49 | Consultation ---
DATE OF CONSULTATION: 11/17/2020 CONSULTATION NOTE CHIEF COMPLAINT: Right hip pain. HISTORY OF PRESENT ILLNESS: This is an 89-year-old male with dementia, who [facility] and yesterday began having difficulty ambulating due to the pain. According to his son, there was possibly a fall 5 days ago. He had x-rays taken in the emergency department, which showed a hip fracture, and I was consulted. He is a poor historian due to his dementia. PAST MEDICAL HISTORY: Extensive including heart disease, dementia. He also has hypercholesterolemia, depression, prostate hypertrophy, hypothyroidism. SURGICAL HISTORY: Colonoscopy and EGDs, left inguinal hernia repair, right shoulder surgery, and placement of an intrathecal pump. MEDICATIONS: Extensive includin. Furosemide. 2. Tiotropium bromide. 3. Memantine. 4. Promethazine. 5. Tizanidine. 6. Pantoprazole. 7. Potassium chloride. 8. Atorvastatin. 9. Citalopram. 10. Divalproex. 11. Finasteride. 12. Gabapentin. 13. Levothyroxine. 14. Tamsulosin. 15. Diclofenac. 16. Lactulose among other supplements. ALLERGIES: NO KNOWN DRUG ALLERGIES. SOCIAL HISTORY: He is , lives in a jail facility. No smoking. Does occasionally drink. FAMILY HISTORY: Positive for esophageal cancer, liver cancer. REVIEW SYSTEMS: Not obtainable due to his dementia. PHYSICAL EXAMINATION: General: He appears his stated age, in no acute distress. He is oriented to person only. Mood and affect are appropriate given his dementia status. Heart: Regular. Lungs: Clear. Extremities: His right lower extremity shows shortening with some internal rotation. He has tenderness to palpation over the right hip. Range of motion is limited due to pain. Skin is intact. Sensation to light touch seems intact. His pulses are palpable. Left lower extremity is normal in appearance. X-ray reviewed, shows what appears to be likely a very base of neck, right hip fracture that is in fairly severe varus angulation and shortening. On my review, this does not look obviously acute. IMPRESSION: Displaced base of neck, right hip fracture, possibly subacute in an 89-year-old demented male, who has multiple medical comorbidities, but was previously ambulatory. PLAN: I did talk with his 2 sons extensively about options of nonoperative treatment and comfort care with hospice care versus proceeding with surgical intervention. After consulting with other family members and discussing, they have elected to proceed surgically. If this fracture is acute, then I will plan on treating this with open treatment and internal fixation using an intramedullary juan carlos. However, if on placement on the OR table and traction we were unable to reduce the fracture, this would indicate a more chronic fracture in which case we will need to proceed with a right hip hemiarthroplasty. I discussed with his son the risks of surgery which are significant including bleeding; possibly requiring transfusion; infection; possibly requiring implant removal and prolonged IV antibiotics; injury to nerves, blood vessels, other surrounding structures; anesthetic risks. If the fracture is fixed, there is a possibility of nonunion of the fracture or failure of hardware fixation. If the fracture is treated with a hemiarthroplasty, this could result in dislocation. They understand. I also discussed high mortality rate in this aged population with his comorbidities. They understand these risks and still would like to proceed. BJB:ayden Job ID: [id number] Doc ID: [id number] Esvin Vieira MD
--- NOTE | 2020-11-18 17:58 | XRay Report ---
HISTORY: FINDINGS: IMPRESSION: 0.6 minutes of fluoroscopy time was used. Interpreted and Authenticated by: Trino Levy 11/18/20
[2020-11-18] MEDS ORDERED: ceFAZolin 1 GM VIAL IV SCH (18:00)
[2020-11-18] MEDS: ceFAZolin 1 GM VIAL IV SCH (19:31)
[2020-11-18] MEDS: SENNOSIDES 1 TABLET PO SCH (20:53)
[2020-11-19] MEDS: ceFAZolin 1 GM VIAL IV SCH ×2 (02:32→10:06)
[2020-11-19] MEDS: 0.9 % SODIUM CHLORIDE 10 ML SYRINGE IV SCH ×2 (05:52→14:00)
[2020-11-19] MEDS: HYDROmorphone 0.5 MG/0.5 ML SYRINGE IV PRN ×3 (08:04→12:02)
--- NOTE | 2020-11-19 08:24 | Operative Note ---
DATE OF OPERATION: 11/17/2020 PREOPERATIVE DIAGNOSIS: Right base of neck hip fracture, possibly subacute. POSTOPERATIVE DIAGNOSIS: Reducible right base of neck hip fracture. PROCEDURE PERFORMED: Open treatment and internal fixation with intramedullary juan carlos fixation of the right base of neck hip fracture using a [place] gamma nail, short. SURGEON: Esvin Vieira MD FRAMING SPECIALIST: Rian Lacy PA-C. This providers expertise and technical skill were required throughout the case. The PA assisted with preoperative coordination, intraoperative retraction, wound closure, and dressing and splint application, as well as postoperative documentation and care coordination. ANESTHESIA: General. DRAINS: None. SPECIMENS: None. COMPLICATIONS: None. ESTIMATED BLOOD LOSS: 50 mL. POSTOPERATIVE CONDITION: Stable. INDICATIONS FOR SURGERY: This is an 89-year-old male with dementia who had a fall of questionable duration. He recently, however, became unable to walk and was previously ambulatory. X-ray showed a displaced base of neck hip fracture of questionable chronicity. FINDINGS AT SURGERY: The base of neck hip fracture was reducible to its anatomic position. Post-fixation showed hardware in good position with good fracture alignment. PROCEDURE IN DETAIL: The patient's sons have been present and consent was obtained as they have power of mergers and acquisitions attorney. I discussed with them the risks and benefits of surgery. Risks including, but not limited to, bleeding; infection; injury to nerves, blood vessels, other surrounding structures, anesthetic risks; nonunion or malunion of the fracture if we attempted fixation; possibility of needing further surgery. They understood and wished to proceed. Correct operative site was marked and the patient was taken to the operating room, and general anesthesia induced. He was carefully positioned on the [place] table and then using fluoroscopic guidance, traction and internal rotation were performed. We were able to reduce the fracture to anatomic alignment and therefore felt it was appropriate fracture type for intramedullary fixation. The right hip and leg were then carefully prepped and draped in normal sterile fashion. A timeout was performed verifying patient name, operative site, and plan. An [place] shower curtain drape was placed. Fluoroscopy was used to identify the tip of the trochanter and then the incision was made proximal to it with a scalpel through skin and subcutaneous tissue. We then obtained hemostasis with Bovie cautery. I continued with Bovie cautery through the IT band. Blunt finger dissection was used to split through the muscle down to the trochanter. A threaded guide pin was placed at the tip of the trochanter and then down to the level of the lesser trochanter. Fluoroscopy was used to verify pin position and minor adjustments made. We then used the opening reamer with a tissue protector. We then used a 125 short gamma nail. This was passed down the femoral canal until the lag screw would be central in the head or slightly below that. A stab incision was made laterally. This sleeve was taken down to bone. Opening drill was used and then a threaded guide pin was passed up the femoral neck to the subchondral bone in the head. This was centered on the lateral view and just below the midline on the AP. We measured this as 100. We then reamed with the step reamer and then a 100 lag screw was placed, being careful to make sure we were within a centimeter of the articular surface on both AP and lateral views. We then placed the locking screw in the end of the nail and advancing it until it was fully tightened and then back turning 1/4 turn to allow sliding compression. We then removed the handle from the lag screw and guide pin was removed and then we went distally. The sleeve was placed through the jig and the stab incision was made, and a sleeve was taken down to bone. We then drilled through the static hole bicortically and a 40 mm depth was measured, 40 mm screw was placed. We got excellent bicortical purchase distally. We then removed the jig and final fluoro images were taken, AP and lateral, proximal and distal. This showed the hardware in good position and fracture anatomically aligned. We then irrigated copiously with IrriSept, after a minute copiously with saline. IT band was closed with #1 Vicryl, 2-0 Monocryl was used for subcutaneous and then renuka for skin. Xeroform and sterile dressing was applied. The patient was then awakened, transferred to a bed and then taken to recovery in satisfactory condition. SHAILESH:anais Job ID: [id number] Doc ID: [id number] Esvin Vieira MD
[2020-11-19] MEDS: cefTRIAXone 1 GM VIAL IV SCH (09:17)
[2020-11-19] MEDS: HEPARIN 5,000 UNIT/ML VIAL SQ SCH ×2 (09:18→21:41)
[2020-11-19] MEDS: DOCUSATE SODIUM 100 MG CAPSULE PO SCH ×2 (09:21→21:40)
--- NOTE | 2020-11-19 11:27 | Orthopedic Progress Note ---
SUBJECTIVE Subjective Patient information: Note initiated : 11/19/20 at 11:26 am Service Date, if different from initiated Date: [] Patient: Douglas Granados 89 y/o M admitted on 11/18/20 for pain, weakness. Chief Complaint: no c/o. Pt confused and demented. Constitutional Vitals: Vital Signs Temp Pulse Resp BP Pulse Ox 98.0 F 93 H 12 124/81 97 11/19/20 08:00 11/19/20 08:00 11/19/20 03:28 11/19/20 08:00 11/19/20 08:00 Period Temp Pulse Resp BP Sys/Elizabeth Pulse Ox Last 24 Hr 97.0 F-98.5 F 58-101 - 85-250/27-193 85-100 Intake and Output 11/18/20 11/19/20 11/19/20 21:59 05:59 13:59 Intake Total 1350 0 Output Total 101 1 Balance 1249 -1 Weight 175 lb Bandages c/d/i nvi-distal Intake & Output: Intake & Output 11/18/20 11/19/20 11/19/20 21:59 05:59 13:59 Intake Total 1350 0 Output Total 101 1 Balance 1249 -1 Weight 175 lb Intake: IV 350 Zithromax 500 mg In Dextrose 5% 250 in Water 250 ml @ 250 mls/hr IV Q24H [facility] Rx#:[id number] Oral 0 IV - Manual Only 1000 Output: # of times incontinent of urine 1 1 Estimated Blood Loss 100 OBJ DATA Labs CBC & Chem 7: 11/18/20 06:50 11/18/20 06:50 Labs: Abnormal Lab Results 11/18/20 11/18/20 11/17/20 06:50 06:50 19:30 WBC RBC 4.08 L Hgb 13.3 L Hct 38.9 L POC Hct Plt Count 120 L MPV 11.5 H Neut % (Auto) Lymph % (Auto) Lymph # (Auto) Seg Neutrophils % 83 H Lymphocytes % 9 L Absolute Neutrophils Platelet Estimate Decreased A Carbon Dioxide 21 L Creatinine 0.6 L 0.6 L Glucose 112 H 118 H POC Glucose Calcium 8.5 L POC WB Ioniz Calcium Urine Appearance Urine Protein Urine Ketones Urine Urobilinogen Urine RBC Hyaline Casts Urine Mucus 11/17/20 11/17/2011/17/21 17:35 17:35 16:30 WBC 11.2 H RBC 4.04 L Hgb 13.2 L Hct 38.1 L POC Hct 38 L Plt Count 117 L MPV 11.1 H Neut % (Auto) 82.1 H Lymph % (Auto) 9.6 L Lymph # (Auto) 1.08 L Seg Neutrophils % Lymphocytes % Absolute Neutrophils 9.20 H Platelet Estimate Carbon Dioxide Creatinine Glucose POC Glucose 132 H Calcium POC WB Ioniz Calcium 1.13 L Urine Appearance Hazy A Urine Protein 30 A Urine Ketones 5 A Urine Urobilinogen 4.0 A Urine RBC 9 H Hyaline Casts 7 H Urine Mucus Many A Meds: Medications Acetaminophen (Acetaminophen 325 Mg Tablet) 650 mg PO Q6HP PRN; Protocol PRN Reason: Per Pain Protocol/Fever > 101 Ceftriaxone Sodium (Ceftriaxone 1 Gm Vial) 1 gm IV Q24H [facility] Last Admin: 11/19/20 09:17 Dose: 1 gm Documented by: Docusate Sodium (Docusate Sodium 100 Mg Capsule) 100 mg PO BID [facility] Last Admin: 11/19/20 09:21 Dose: Not Given Documented by: Heparin Sodium (Porcine) (Heparin 5,000 Unit/Ml Vial) 5,000 unit SQ Q12 [facility] Last Admin: 11/19/20 09:18 Dose: 5,000 unit Documented by: Hydromorphone HCl (Hydromorphone 0.5 Mg/0.5 Ml Syringe) 0.5 mg IV Q2HP PRN; Protocol PRN Reason: Per Pain Protocol Last Admin: 11/19/20 10:06 Dose: 0.5 mg Documented by: Azithromycin 500 mg/ Dextrose 250 mls @ 250 mls/hr IV Q24H [facility]; Protocol Stop: 11/19/20 21:59 Last Infusion: 11/18/20 15:10 Dose: Infused Documented by: Ondansetron HCl (Ondansetron 4 Mg/2 Ml Vial) 4 mg IV Q6HP PRN PRN Reason: Nausea And Vomiting Oxycodone/Acetaminophen (Oxycodone/Apap 5/325mg Tablet) 1 tab PO Q4HP PRN; Protocol PRN Reason: Per Pain Protocol Senna (Sennosides 1 Tablet) 2 tab PO HS [facility] Last Admin: 11/18/20 20:53 Dose: Not Given Documented by: Sodium Chloride (0.9 % Sodium Chloride 10 Ml Syringe) 10 ml IV Q8 [facility] Last Admin: 11/19/20 05:52 Dose: Not Given Documented by: A/P Assessment and plan (1) Intertrochanteric fracture of right hip: Status: Acute Comment: mobilize with PT discharged to SNF 1-2 days Time Spent With Patient Time: Total time spent is greater than 50% in coordination of care (as documented) at patient's floor/unit and/or counseling patient:
--- NOTE | 2020-11-19 12:54 | Internal Med Progress Note ---
SUBJECTIVE Subjective Patient information: Note initiated : 11/19/20 at 12:50 pm Service Date, if different from initiated Date: [] Patient: Douglas Granados 89 y/o M admitted on 11/18/20 for pain, weakness. Chief Complaint: [] Interval history: Mr. Granados is a 89 year old male with a history of multiple comorbidities including dementia [facility] and was brought to medical attention for difficulty ambulating due to severe pain. In the ED the patient was found to have an acute right hip fracture. Workup also included a chest xray that was suggestive of a left lower lobe pneumonia. The patient's son makes medical decisions, he has not decided whether to pursue surgical fixation or comfort cares. Hospital medicine was asked to admit the patient for pain control and goals of care discussions. 11/19: The patient had an ORIF wit IM juan carlos fixation, doing well post operatively. Case management reviewing placement options. Physical Exam Head: Atraumatic, normal inspection. Eyes: normal appearance, no scleral icterus. Neck: full ROM Respiratory: no respiratory distress. Cardiovascular: normal rate and rhythm, S1, S2. GI/Abdominal: soft, nontender, no guarding, palpable pain pump. Extremities: surgical site covered with clean bandage, nontender. Neurological: CN II-XII intact, intact motor, intact sensation. Psychiatric: normal mood, impaired cognition Skin: warm, normal color Constitutional Vitals: Vital Signs Temp Pulse Resp BP Pulse Ox 98.0 F 93 H 12 124/81 97 11/19/20 08:00 11/19/20 08:00 11/19/20 03:28 11/19/20 08:00 11/19/20 08:00 Period Temp Pulse Resp BP Sys/Elizabeth Pulse Ox Last 24 Hr 97.0 F-98.5 F 58-98 12-25 85-250/27-193 85-100 Intake and Output 11/18/20 11/19/20 11/19/20 21:59 05:59 13:59 Intake Total 1350 0 Output Total 101 1 Balance 1249 -1 Weight 79.379 kg Intake & Output: Intake & Output 11/18/20 11/19/20 11/19/20 21:59 05:59 13:59 Intake Total 1350 0 Output Total 101 1 Balance 1249 -1 Weight 79.379 kg Intake: IV 350 Zithromax 500 mg In Dextrose 5% 250 in Water 250 ml @ 250 mls/hr IV Q24H [facility] Rx#:[id number] Oral 0 IV - Manual Only 1000 Output: # of times incontinent of urine 1 1 Estimated Blood Loss 100 OBJ DATA Labs CBC & Chem 7: 11/18/20 06:50 11/18/20 06:50 Labs: Abnormal Lab Results 11/18/20 11/18/20 11/17/20 06:50 06:50 19:30 WBC RBC 4.08 L Hgb 13.3 L Hct 38.9 L POC Hct Plt Count 120 L MPV 11.5 H Neut % (Auto) Lymph % (Auto) Lymph # (Auto) Seg Neutrophils % 83 H Lymphocytes % 9 L Absolute Neutrophils Platelet Estimate Decreased A Carbon Dioxide 21 L Creatinine 0.6 L 0.6 L Glucose 112 H 118 H POC Glucose Calcium 8.5 L POC WB Ioniz Calcium Urine Appearance Urine Protein Urine Ketones Urine Urobilinogen Urine RBC Hyaline Casts Urine Mucus 11/17/20 11/17/20 11/17/20 17:35 17:35 16:30 WBC 11.2 H RBC 4.04 L Hgb 13.2 L Hct 38.1 L POC Hct 38 L Plt Count 117 L MPV 11.1 H Neut % (Auto) 82.1 H Lymph % (Auto) 9.6 L Lymph # (Auto) 1.08 L Seg Neutrophils % Lymphocytes % Absolute Neutrophils 9.20 H Platelet Estimate Carbon Dioxide Creatinine Glucose POC Glucose 132 H Calcium POC WB Ioniz Calcium 1.13 L Urine Appearance Hazy A Urine Protein 30 A Urine Ketones 5 A Urine Urobilinogen 4.0 A Urine RBC 9 H Hyaline Casts 7 H Urine Mucus Many A Meds: Medications Acetaminophen (Acetaminophen 325 Mg Tablet) 650 mg PO Q6HP PRN; Protocol PRN Reason: Per Pain Protocol/Fever > 101 Ceftriaxone Sodium (Ceftriaxone 1 Gm Vial) 1 gm IV Q24H [facility] Last Admin: 11/19/20 09:17 Dose: 1 gm Documented by: Docusate Sodium (Docusate Sodium 100 Mg Capsule) 100 mg PO BID [facility] Last Admin: 11/19/20 09:21 Dose: Not Given Documented by: Heparin Sodium (Porcine) (Heparin 5,000 Unit/Ml Vial) 5,000 unit SQ Q12 [facility] Last Admin: 11/19/20 09:18 Dose: 5,000 unit Documented by: Hydromorphone HCl (Hydromorphone 0.5 Mg/0.5 Ml Syringe) 0.5 mg IV Q2HP PRN; Protocol PRN Reason: Per Pain Protocol Last Admin: 11/19/20 12:02 Dose: 0.5 mg Documented by: Azithromycin 500 mg/ Dextrose 250 mls @ 250 mls/hr IV Q24H [facility]; Protocol Stop: 11/19/20 21:59 Last Infusion: 11/18/20 15:10 Dose: Infused Documented by: Ondansetron HCl (Ondansetron 4 Mg/2 Ml Vial) 4 mg IV Q6HP PRN PRN Reason: Nausea And Vomiting Oxycodone/Acetaminophen (Oxycodone/Apap 5/325mg Tablet) 1 tab PO Q4HP PRN; Protocol PRN Reason: Per Pain Protocol Senna (Sennosides 1 Tablet) 2 tab PO HS [facility] Last Admin: 11/18/20 20:53 Dose: Not Given Documented by: Sodium Chloride (0.9 % Sodium Chloride 10 Ml Syringe) 10 ml IV Q8 [facility] Last Admin: 11/19/20 05:52 Dose: Not Given Documented by: A/P Narrative A/P Narrative: Assessment: 89 year old male with a history of multiple comorbidities including dementia who resides at [facility] and was brought to medical attention for difficulty ambulating due to severe pain and was found to have an acute right hip fracture and findings concerning for an incidental le ft lower pneumonia on chest xray. #Right hip fracture s/p ORIF and IM juan carlos placement #Probable left lower lobe pneumonia vs mass #Aortic stenosis/regurgitation #COPD #Hypothyroidism #Hyperlipidemia #Chronic pain #Dementia Plan -Analgesic prn -Ortho consult -antibiotics for PNA -Home medication reconciliation -Delirium mitigation strategies -DVT ppx: heparin -Code status: DNR -Dispo: SNF Time Spent With Patient Time: Total time spent is greater than 50% in coordination of care (as documented) at patient's floor/unit and/or counseling patient:
[2020-11-19] MEDS: AZITHROMYCIN 500 MG in DEXTROSE 5% IN WATER 250 ML IV SCH (14:57)
[2020-11-19] MEDS: oxyCODONE/APAP 5/325MG TABLET PO PRN ×2 (17:17→21:53)
[2020-11-19] MEDS: SENNOSIDES 1 TABLET PO SCH (21:53)
[2020-11-20] MEDS: 0.9 % SODIUM CHLORIDE 10 ML SYRINGE IV SCH ×4 (00:26→20:32)
[2020-11-20] MEDS: oxyCODONE/APAP 5/325MG TABLET PO PRN ×2 (04:51→20:31)
--- NOTE | 2020-11-20 07:04 | Orthopedic Progress Note ---
SUBJECTIVE Subjective Patient information: Note initiated : 11/20/20 at 7:03 am Service Date, if different from initiated Date: [] Patient: Douglas Granados 89 y/o M admitted on 11/18/20 for pain, weakness. Chief Complaint: pt confused. Constitutional Vitals: Vital Signs Temp Pulse Resp BP Pulse Ox 98.1 F 83 24 H 160/93 91 11/20/20 03:36 11/20/20 03:36 11/20/20 03:36 11/20/20 03:36 11/20/20 03:36 Period Temp Pulse Resp BP Sys/Elizabeth Pulse Ox Last 24 Hr 97.6 F-98.8 F 83-107 14-24 124-182/81-101 89-100 Intake and Output 11/19/20 11/20/20 11/20/20 21:59 05:59 13:59 Intake Total 370 450 Output Total 2 1 Balance 368 449 Weight 165 lb bandages c/d/i nvi-distal Intake & Output: Intake & Output 11/19/20 11/20/20 11/20/20 21:59 05:59 13:59 Intake Total 370 450 Output Total 2 1 Balance 368 449 Weight 165 lb Intake: IV 250 Zithromax 500 mg In Dextrose 5% 250 in Water 250 ml @ 250 mls/hr IV Q24H [facility] Rx#:[id number] Oral 120 450 Output: # of times incontinent of urine 2 1 Other: Meal Dinner Percent of Meal Consumed 25% Feeding Ability Total Assistance OBJ DATA Labs CBC & Chem 7: 11/18/20 06:50 11/18/20 06:50 Labs: Abnormal Lab Results 11/18/20 11/18/20 11/17/20 06:50 06:50 19:30 WBC RBC 4.08 L Hgb 13.3 L Hct 38.9 L POC Hct Plt Count 120 L MPV 11.5 H Neut % (Auto) Lymph % (Auto) Lymph # (Auto) Seg Neutrophils % 83 H Lymphocytes % 9 L Absolute Neutrophils Platelet Estimate Decreased A Carbon Dioxide 21 L Creatinine 0.6 L 0.6 L Glucose 112 H 118 H POC Glucose Calcium 8.5 L POC WB Ioniz Calcium Urine Appearance Urine Protein Urine Ketones Urine Urobilinogen Urine RBC Hyaline Casts Urine Mucus 11/17/20 11/17/20 11/17/20 17:35 17:35 16:30 WBC 11.2 H RBC 4.04 L Hgb 13.2 L Hct 38.1 L POC Hct 38 L Plt Count 117 L MPV 11.1 H Neut % (Auto) 82.1 H Lymph % (Auto) 9.6 L Lymph # (Auto) 1.08 L Seg Neutrophils % Lymphocytes % Absolute Neutrophils 9.20 H Platelet Estimate Carbon Dioxide Creatinine Glucose POC Glucose 132 H Calcium POC WB Ioniz Calcium 1.13 L Urine Appearance Hazy A Urine Protein 30 A Urine Ketones 5 A Urine Urobilinogen 4.0 A Urine RBC 9 H Hyaline Casts 7 H Urine Mucus Many A Meds: Medications Acetaminophen (Acetaminophen 325 Mg Tablet) 650 mg PO Q6HP PRN; Protocol PRN Reason: Per Pain Protocol/Fever > 101 Ceftriaxone Sodium (Ceftriaxone 1 Gm Vial) 1 gm IV Q24H [facility] Last Admin: 11/19/20 09:17 Dose: 1 gm Documented by: Docusate Sodium (Docusate Sodium 100 Mg Capsule) 100 mg PO BID [facility] Last Admin: 11/19/20 21:40 Dose: 100 mg Documented by: Heparin Sodium (Porcine) (Heparin 5,000 Unit/Ml Vial) 5,000 unit SQ Q12 [facility] Last Admin: 11/19/20 21:41 Dose: 5,000 unit Documented by: Hydromorphone HCl (Hydromorphone 0.5 Mg/0.5 Ml Syringe) 0.5 mg IV Q2HP PRN; Protocol PRN Reason: Per Pain Protocol Last Admin: 11/19/20 12:02 Dose: 0.5 mg Documented by: Ondansetron HCl (Ondansetron 4 Mg/2 Ml Vial) 4 mg IV Q6HP PRN PRN Reason: Nausea And Vomiting Oxycodone/Acetaminophen (Oxycodone/Apap 5/325mg Tablet) 1 tab PO Q4HP PRN; Protocol PRN Reason: Per Pain Protocol Last Admin: 11/20/20 04:51 Dose: 1 tab Documented by: Senna (Sennosides 1 Tablet) 2 tab PO HS [facility] Last Admin: 11/19/20 21:53 Dose: 2 tab Documented by: Sodium Chloride (0.9 % Sodium Chloride 10 Ml Syringe) 10 ml IV Q8 [facility] Last Admin: 11/20/20 06:06 Dose: Not Given Documented by: A/P Assessment and plan (1) Intertrochanteric fracture of right hip: Status: Acute Comment: mobilize with PT discharged to SNF signing out from ortho service. -f/u in 2 weeks. Time Spent With Patient Time: Total time spent is greater than 50% in coordination of care (as documented) at patient's floor/unit and/or counseling patient:
[2020-11-20] MEDS: cefTRIAXone 1 GM VIAL IV SCH ×2 (07:52→13:12)
[2020-11-20] MEDS: HEPARIN 5,000 UNIT/ML VIAL SQ SCH ×2 (07:53→20:30)
[2020-11-20] MEDS: DOCUSATE SODIUM 100 MG CAPSULE PO SCH ×2 (07:53→20:31)
--- NOTE | 2020-11-20 16:58 | Internal Med Progress Note ---
SUBJECTIVE Subjective Patient information: Note initiated : 11/20/20 at 4:57 pm Service Date, if different from initiated Date: [] Patient: Douglas Granados 89 y/o M admitted on 11/18/20 for pain, weakness. Chief Complaint: [] Interval history: Mr. Granados is a 89 year old male with a history of multiple comorbidities including dementia [facility] and was brought to medical attention for difficulty ambulating due to severe pain. In the ED the patient was found to have an acute right hip fracture. Workup also included a chest xray that was suggestive of a left lower lobe pneumonia. The patient's son makes medical decisions, he has not decided whether to pursue surgical fixation or comfort cares. Hospital medicine was asked to admit the patient for pain control and goals of care discussions. 11/19: The patient had an ORIF wit IM juan carlos fixation, doing well post operatively. Case management reviewing placement options. 11/20: Made it to the room chair today, changed to oral antibiotic for pneumonia, CM working on placement. Physical Exam Head: Atraumatic, normal inspection. Eyes: normal appearance, no scleral icterus. Neck: full ROM Respiratory: no respiratory distress. Cardiovascular: normal rate GI/Abdominal: soft, nontender, no guarding, palpable pain pump. Extremities: surgical site covered with clean bandage Neurological: CN II-XII intact, intact motor, intact sensation. Psychiatric: normal mood, impaired cognition Skin: warm, normal color Constitutional Vitals: Vital Signs Temp Pulse Resp BP Pulse Ox 98.2 F 81 24 H 156/94 97 11/20/20 13:51 11/20/20 13:51 11/20/20 12:00 11/20/20 13:51 11/20/20 13:51 Period Temp Pulse Resp BP Sys/Elizabeth Pulse Ox Last 24 Hr 97.6 F-98.3 F 81-107 24-24 130-182/73-100 91-97 Intake and Output 11/20/20 11/20/20 11/20/20 05:59 13:59 21:59 Intake Total 450 Output Total 1 Balance 449 Weight 74.843 kg Patient Weight 11/21/20 05:59 Weight 74.843 kg Intake & Output: Intake & Output 11/20/20 11/20/20 11/20/20 05:59 13:59 21:59 Intake Total 450 Output Total 1 Balance 449 Weight 74.843 kg Intake: Oral 450 Output: # of times incontinent of urine 1 OBJ DATA Labs CBC & Chem 7: 11/18/20 06:50 11/18/20 06:50 Labs: Abnormal Lab Results 11/18/20 11/18/20 11/17/20 06:50 06:50 19:30 WBC RBC 4.08 L Hgb 13.3 L Hct 38.9 L POC Hct Plt Count 120 L MPV 11.5 H Neut % (Auto) Lymph % (Auto) Lymph # (Auto) Seg Neutrophils % 83 H Lymphocytes % 9 L Absolute Neutrophils Platelet Estimate Decreased A Carbon Dioxide 21 L Creatinine 0.6 L 0.6 L Glucose 112 H 118 H POC Glucose Calcium 8.5 L POC WB Ioniz Calcium Urine Appearance Urine Protein Urine Ketones Urine Urobilinogen Urine RBC Hyaline Casts Urine Mucus 11/17/20 11/17/20 11/17/20 17:35 17:35 16:30 WBC 11.2 H RBC 4.04 L Hgb 13.2 L Hct 38.1 L POC Hct 38 L Plt Count 117 L MPV 11.1 H Neut % (Auto) 82.1 H Lymph % (Auto) 9.6 L Lymph # (Auto) 1.08 L Seg Neutrophils % Lymphocytes % Absolute Neutrophils 9.20 H Platelet Estimate Carbon Dioxide Creatinine Glucose POC Glucose 132 H Calcium POC WB Ioniz Calcium 1.13 L Urine Appearance Hazy A Urine Protein 30 A Urine Ketones 5 A Urine Urobilinogen 4.0 A Urine RBC 9 H Hyaline Casts 7 H Urine Mucus Many A Meds: Medications Acetaminophen (Acetaminophen 325 Mg Tablet) 650 mg PO Q6HP PRN; Protocol PRN Reason: Per Pain Protocol/Fever > 101 Cefuroxime Axetil (Cefuroxime 500 Mg Tablet) 500 mg PO Q12 [facility]; Protocol Stop: 11/22/20 20:59 Docusate Sodium (Docusate Sodium 100 Mg Capsule) 100 mg PO BID [facility] Last Admin: 11/20/20 07:53 Dose: 100 mg Documented by: Heparin Sodium (Porcine) (Heparin 5,000 Unit/Ml Vial) 5,000 unit SQ Q12 [facility] Last Admin: 11/20/20 07:53 Dose: 5,000 unit Documented by: Hydromorphone HCl (Hydromorphone 0.5 Mg/0.5 Ml Syringe) 0.5 mg IV Q2HP PRN; Protocol PRN Reason: Per Pain Protocol Last Admin: 11/19/20 12:02 Dose: 0.5 mg Documented by: Ondansetron HCl (Ondansetron 4 Mg/2 Ml Vial) 4 mg IV Q6HP PRN PRN Reason: Nausea And Vomiting Oxycodone/Acetaminophen (Oxycodone/Apap 5/325mg Tablet) 1 tab PO Q4HP PRN; Protocol PRN Reason: Per Pain Protocol Last Admin: 11/20/20 04:51 Dose: 1 tab Documented by: Senna (Sennosides 1 Tablet) 2 tab PO HS [facility] Last Admin: 11/19/20 21:53 Dose: 2 tab Documented by: Sodium Chloride (0.9 % Sodium Chloride 10 Ml Syringe) 10 ml IV Q8 [facility] Last Admin: 11/20/20 13:11 Dose: Not Given Documented by: A/P Narrative A/P Narrative: Assessment: 89 year old male with a history of multiple comorbidities including dementia who [facility] and was brought to medical attention for difficulty ambulating due to severe pain and was found to have an acute right hip fracture and findings concerning for an incidental left lower pneumonia on chest xray. #Right hip fracture s/p ORIF and IM juan carlos placement #Probable left lower lobe pneumonia vs scarring vs mass #Aortic stenosis/regurgitation #COPD #Hypothyroidism #Hyperlipidemia #Chronic pain #Dementia Plan -Analgesic prn -Ortho following -complete antibiotics for PNA -Essential home meds -Delirium mitigation -DVT ppx: heparin -Code status: DNR -Dispo: SNF Time Spent With Patient Time: Total time spent is greater than 50% in coordination of care (as documented) at patient's floor/unit and/or counseling patient:
[2020-11-20] MEDS: CEFUROXIME 500 MG TABLET PO SCH (20:31)
[2020-11-20] MEDS: SENNOSIDES 1 TABLET PO SCH (20:31)
[2020-11-21] MEDS: oxyCODONE/APAP 5/325MG TABLET PO PRN ×3 (00:42→10:17)
[2020-11-21] MEDS: CEFUROXIME 500 MG TABLET PO SCH (10:19)
[2020-11-21] MEDS: HEPARIN 5,000 UNIT/ML VIAL SQ SCH (10:20)
[2020-11-21] MEDS: DOCUSATE SODIUM 100 MG CAPSULE PO SCH (10:20)
--- NOTE | 2020-11-21 11:02 | Discharge Summary ---
Discharge Provider Provider Patient information: Note initiated : 11/21/20 at 11:00 am Service Date, if different from initiated Date: [] Patient: Douglas Granados 89 y/o M admitted on 11/18/20 for pain, weakness. Chief Complaint: [] Date of admission: 11/18/20 18:00 Discharge date: 11/21/20 Primary care physician: Trino Silverman Consults: 11/17/20 Consult to Physician [CONS] Stat Comment: Consulting Provider: Esvin Vieira Reason For Exam: Physician to Consult Consult to Physician [CONS] Stat Comment: Consulting Provider: Chema Rob Reason For Exam: Physician to Consult 11/17/20 21:01 Consult to Physician [CONS] Stat Comment: Consulting Provider: Esvin Vieira Reason For Exam: Physician to Consult Discharge Meds Discharge Medications Home Medications O2 2 l .ROUTE QDAY 05/04/19 [History Confirmed 11/18/20 Last Taken 11/17/20 07:00 2 liters] carboxymethylcellulose sodium [Artificial Tears (cmc)] 2 drp OPHTHALMIC (EYE) QID 05/04/19 [History Confirmed 11/18/20 Last Taken 11/17/20 13:00 2 gtts.] furosemide 20 mg tablet 20 mg PO .COMPLEX #90 tab 05/04/19 [Rx Confirmed 11/18/20 Last Taken 11/16/20 16:00 20 mg.] ketoconazole 2 % shampoo 1 applic TOPICAL 3XW 05/04/19 [History Confirmed 11/18/20 Last Taken 11/17/20 08:00 1 melyssa] ketoconazole 2 % topical cream 1 applic TOPICAL 3XW g 05/04/19 [History Confirmed 11/18/20 Last Taken 11/17/20 07:00 1 melyssa] sennosides 8.6 mg tablet 17.2 mg PO QPM tab 05/04/19 [History Confirmed 11/18/20 Last Taken 11/17/20 13:00 17.2 mg.] tiotropium bromide 18 mcg capsule with inhalation device 1 cap INHALATION QAM puff 05/04/19 [History Confirmed 11/18/20 Last Taken 11/17/20 07:00 18 mcg.] vit C-vit [id number] [Ocuvite] 1 cap PO QDAY 05/04/19 [History Confirmed 11/20/20 Last Taken 11/17/20 07:00 1 cap] zinc oxide 13 % topical cream 1 applic TOPICAL QPM #113 g 05/15/19 [Rx Confirmed 11/18/20 Last Taken Unknown] acetaminophen 500 mg tablet 500 mg PO Q6H PRN tab 05/17/19 [History Confirmed 11/18/20 Last Taken 11/17/20 14:06 500 MG.] benzocaine 10 % mucosal gel 1 applic MUCOUS MEM .COMPLEX 05/17/19 [History Confirmed 11/18/20 Last Taken Unknown] cyanocobalamin (vitamin B-12) 1,000 mcg capsule 1,000 mcg PO QDAY 05/17/19 [History Confirmed 11/18/20 Last Taken 11/16/20 18:00 1000 mcg] ferrous sulfate 325 mg (65 mg iron) tablet 325 mg PO BID tab 05/17/19 [History Confirmed 11/18/20 Last Taken 11/17/20 07:00 325 mg.] memantine 5 mg tablet 10 mg PO BID tab 05/17/19 [History Confirmed 11/18/20 Last Taken 11/16/20 18:00 5 mg.] promethazine 12.5 mg tablet 12.5 mg PO Q8H PRN tab 05/17/19 [History Confirmed 11/18/20 Last Taken Unknown] tizanidine 4 mg tablet 4 mg PO TID 05/17/19 [History Confirmed 11/18/20 Last Taken Unknown] erythromycin 5 mg/gram (0.5 %) eye ointment 0.5 inch OPHTHALMIC BID #1 g 06/28/19 [Rx Confirmed 11/18/20 Last Taken Unknown] cholecalciferol (vitamin D3) 25 mcg (1,000 unit) chewable tablet 25 mcg PO QDAY #90 tab 08/02/19 [Rx Confirmed 11/18/20 Last Taken 11/17/20 07:00 25 mcg] pantoprazole 40 mg tablet,delayed release 40 mg PO QAM #90 tab 08/02/19 [Rx Confirmed 11/18/20 Last Taken 11/16/20 07:30 40 mg.] potassium chloride 10 mEq tablet,extended release(part/cryst) 10 meq PO BID #180 tab 08/02/19 [Rx Confirmed 11/18/20 Last Taken 11/17/20 07:00 10 meq] nystatin 100,000 unit/gram topical cream See Rx Instructions .ROUTE .COMPLEX #30 unknown measurement unit code: gram 08/21/19 [Rx Confirmed 11/18/20 Last Taken 11/17/20 07:00 1 [id number] units] atorvastatin 20 mg tablet 20 mg PO QDAY #90 tab 09/11/19 [Rx Confirmed 11/18/20 Last Taken 11/16/20 21:00 20 MG.] citalopram 40 mg tablet 40 mg PO QAM #90 tab 09/11/19 [Rx Confirmed 11/18/20 Last Taken 11/17/20 07:00 40 mg.] divalproex 250 mg tablet,extended release 24 hr 250 mg PO QNOON #90 tab 09/11/19 [Rx Confirmed 11/18/20 Last Taken 11/16/20 12:00 250 mg.] divalproex 500 mg tablet,extended release 24 hr 500 mg PO QHS #90 tab 09/11/19 [Rx Confirmed 11/18/20 Last Taken 11/16/20 21:00 500 mg.] finasteride 5 mg tablet 5 mg PO QPM #90 tab 09/11/19 [Rx Confirmed 11/18/20 Last Taken 11/17/20 13:00 5 mg.] gabapentin 300 mg capsule 300 mg PO TID #270 cap 09/11/19 [Rx Confirmed 11/18/20 Last Taken 11/16/20 21:00 300 mg.] levothyroxine 25 mcg capsule 25 mcg PO QAM #90 cap 09/11/19 [Rx Confirmed 11/18/20 Last Taken 11/17/20 07:00 25 mcg] megestrol 400 mg/10 mL (40 mg/mL) oral suspension 200 mg PO QAM #480 ml 09/11/19 [Rx Confirmed 11/18/20 Last Taken 11/16/20 11:00 400 mg.] polyethylene glycol 3350 17 gram/dose oral powder 17 g PO QDAY #850 g 09/11/19 [Rx Confirmed 11/18/20 Last Taken 11/17/20 07:00 17 gm.] tamsulosin 0.4 mg capsule 0.4 mg PO QHS #90 cap 09/11/19 [Rx Confirmed 11/18/20 Last Taken 11/17/20 07:00 0.4 mg.] lactulose 10 gram/15 mL oral solution See Rx Instructions .ROUTE .COMPLEX #473 ml 09/25/19 [Rx Confirmed 11/18/20 Last Taken 11/17/20 13:00 10 gm.] diclofenac sodium 1 % topical gel See Rx Instructions .ROUTE .COMPLEX #100 g 09/23/20 [Rx Confirmed 11/18/20 Last Taken Unknown] cefuroxime axetil 500 mg PO Q12 3 Days #6 tab 11/21/20 [Rx Last Taken Unknown] enoxaparin [Lovenox] 40 mg SUBCUT QDAY 25 Days #10 ml 11/21/20 [Rx Last Taken Unknown] ibuprofen 400 mg PO Q8H PRN 10 Days #10 tab 11/21/20 [Rx Last Taken Unknown] sennosides [Senna Lax] 17.2 mg PO HS 30 Days #60 tab 11/21/20 [Rx Last Taken Unknown] COURSE Hospital Course Hospital course: Mr. Granados is a 89 year old male with a history of multiple comorbidities including dementia who [facility] and was brought to medical attention for difficulty ambulating due to severe pain. In the ED the patient was found to have an acute right hip fracture. Workup also included a chest xray that was suggestive of a left lower lobe pneumonia. The patient's son makes medical decisions, he has not decided whether to pursue surgical fixation or comfort cares. Hospital medicine was asked to admit the patient for pain control and goals of care discussions. 11/19: The patient had an ORIF wit IM juan carlos fixation, doing well post operatively. Case management reviewing placement options. 11/20: Made it to the room chair today, changed to oral antibiotic for pneumonia, CM working on placement. 11/21: Discharged to [facility] for DVT prophylaxis, follow up with orthopedic surgery in 2 weeks. Cefuroxime for 3 days to complete treatment for left lower lobe pneumonia. Physical Exam Head: Atraumatic, normal inspection. Eyes: normal appearance, no scleral icterus. Neck: full ROM Respiratory: no respiratory distress. Cardiovascular: normal rate GI/Abdominal: soft, nontender, no guarding, palpable pain pump. Extremities: surgical site covered with clean bandage Neurological: CN II-XII intact, intact motor, intact sensation. Psychiatric: normal mood, impaired cognition Skin: warm, normal color Discharge diagnosis: Femur fracture Time Spent with Patient Time attestation: Total time spent providing and/or coordinating discharge services: EXAM Constitutional Vitals: Temp Pulse Resp BP Pulse Ox 97.3 F 84 22 147/88 93 11/21/20 08:00 11/21/20 08:00 11/21/20 08:00 11/21/20 08:00 11/21/20 08:00 Discharge Plan Patient/Caregiver Discharge Instructions Activity: as per physical therapy Diet: Regular Diet Prescriptions: New cefuroxime axetil 500 mg Tablet 500 mg PO Q12 3 Days Qty: 6 RF: 0 sennosides [Senna Lax] 8.6 mg Tablet 17.2 mg PO HS 30 Days Qty: 60 RF: 0 ibuprofen 400 mg tablet 400 mg PO Q8H PRN (Reason: pain) 10 Days Qty: 10 RF: 0 enoxaparin [Lovenox] 40 mg/0.4 mL syringe 40 mg subcut QDAY 25 Days Qty: 10 RF: 0 Continued sennosides [senna] 8.6 mg tablet 17.2 mg PO QPM RF: 0 carboxymethylcellulose sodium 2 drp ophthalmic (eye) QID RF: 0 ketoconazole 2 % cream 1 applic TOPICAL 3XW RF: 0 ketoconazole 2 % shampoo 1 applic TOPICAL 3XW RF: 0 vit C-vit [id number]-om-3 1 cap PO QDAY RF: 0 Spiriva with HandiHaler 18 mcg capsule, w/inhalation device 1 cap INHALATION QAM RF: 0 furosemide 20 mg tablet 20 mg PO .COMPLEX Qty: 90 RF: 5 memantine 5 mg tablet 10 mg PO BID RF: 0 acetaminophen [Tylenol Extra Strength] 500 mg tablet 500 mg PO Q6H PRN (Reason: Pain, Mild) RF: 0 ferrous sulfate [iron] 325 mg (65 mg iron) tablet 325 mg PO BID RF: 0 Desitin Rapid Relief 13 % cream 1 applic TOPICAL QPM Qty: 113 RF: 0 erythromycin 5 mg/gram (0.5 %) ointment 0.5 inch OPHTHALMIC BID Qty: 1 RF: 0 potassium chloride 10 mEq tablet,ER particles/crystals 10 meq PO BID Qty: 180 RF: 0 pantoprazole 40 mg tablet,delayed release (DR/EC) 40 mg PO QAM Qty: 90 RF: 0 cholecalciferol (vitamin D3) 25 mcg (1,000 unit) tablet,chewable 25 mcg PO QDAY Qty: 90 RF: 0 nystatin 100,000 unit/gram cream See Rx Instructions .ROUTE .COMPLEX Qty: 30 RF: 10 tamsulosin [Flomax] 0.4 mg capsule 0.4 mg PO QHS Qty: 90 RF: 4 gabapentin 300 mg capsule 300 mg PO TID Qty: 270 RF: 4 finasteride 5 mg tablet 5 mg PO QPM Qty: 90 RF: 4 atorvastatin 20 mg tablet 20 mg PO QDAY Qty: 90 RF: 4 citalopram [Celexa] 40 mg tablet 40 mg PO QAM Qty: 90 RF: 4 divalproex 500 mg tablet extended release 24 hr 500 mg PO QHS Qty: 90 RF: 4 divalproex 250 mg tablet extended release 24 hr 250 mg PO QNOON Qty: 90 RF: 4 levothyroxine 25 mcg capsule 25 mcg PO QAM Qty: 90 RF: 4 polyethylene glycol 3350 [Miralax] 17 gram/dose powder 17 g PO QDAY Qty: 850 RF: 8 megestrol 400 mg/10 mL (40 mg/mL) suspension 200 mg PO QAM Qty: 480 RF: 4 lactulose 10 gram/15 mL solution See Rx Instructions .ROUTE .COMPLEX Qty: 473 RF: 10 diclofenac sodium 1 % gel See Rx Instructions .ROUTE .COMPLEX Qty: 100 RF: 4 O2 2 l .Route QDAY RF: 0 tizanidine 4 mg tablet 4 mg PO TID RF: 0 benzocaine 10 % gel 1 applic MUCOUS MEM .COMPLEX RF: 0 promethazine 12.5 mg tablet 12.5 mg PO Q8H PRN (Reason: nausea) RF: 0 cyanocobalamin (vitamin B-12) 1,000 mcg capsule 1,000 mcg PO QDAY RF: 0 Follow Up Plan Follow up with: Tristan Lacy PA-C [Physician [employer]] - 12/05/20 (Follow up femur fracture repair. ) Patient Disposition: Xfer SNF Rehab Potential: Undetermined I certify that the patient requires SNF services: Yes Overall status at discharge: patient is progressing back to baseline Discharge Orders: Discharge Order (Routine); Ordered 11/21/20 Ordered By: Chema Rob
== END 2020-11-21 12:50 | DRG 480 ==
LOC: ED 15:44 → MEDSUR 15:44
PROVIDERS: ADMIT Internal Medicine; ATTEND Internal Medicine